=== PATIENT | female | born 1935 | race Caucasian/White ===

== ENCOUNTER 2017-10-09 09:42 | Emergency (ER) | payer OTHER ==
[~2017-10-09] VITALS: Ht 165.1 cm; Wt 62.4 kg
[~2017-10-09 09:42] MED LIST: ASCO10004 PO; CARV6.252 PO; CHOL100011 PO; CYAN50005 PO; DIGO125T PO; DILT180C9 PO; DIPH25CA61 PO; FENO134C PO; FURO20TA3 PO; GLIM4TAB2 PO; LISI40TA PO; OMEG-82 PO; PARO10TA3 PO; PSYL0.5215 PO; VIT1CAPS9 PO; VITA1TAB61 PO; VITA400C43 PO; WARF1TAB PO; WARF2TAB7 PO
[2017-10-09 09:47] VITALS: BP 152/82
[2017-10-09] MEDS ORDERED: PROPARACAINE OPHTH 0.5%, 15ML LEFTEYE STA (11:13)
[2017-10-09] MEDS ORDERED: FLUORESCEIN OPHTHALMIC 1 MG STRIP ONE (11:25)
[2017-10-09] MEDS ORDERED: PROPARACAINE OPHTH 0.5%, 15ML ONE (11:25)
[2017-10-09 11:33] LABS: INTERNATIONAL NORMALIZED RATIO 2.07 (0.93-1.1)
== END 2017-10-09 14:09 | disposition home or self-care (01) ==
LOC: ED 12:37
DX: H54.62 Unqualified visual loss, left eye, normal vision right eye (principal); R79.1 Abnormal coagulation profile; E11.9 Type 2 diabetes mellitus without complications; I48.91 Unspecified atrial fibrillation
CPT/HCPCS: 36415; 82962; 85610; 99283